=== PATIENT | male | born 1955 | race American Indian/Alaskan Native ===

== ENCOUNTER 2017-09-18 11:44 | Emergency (ER) | payer MEDICAID ==
[2017-09-18 11:49] VITALS: BMI 29.4
[2017-09-18 12:27] LABS: BASO % 0.6 % (0.0-2.0); EOS # 0.2 K/uL (0.0-0.7); EOS % 2.4 % (0.0-4.0); LYMPH # 1.6 K/uL (1.0-4.3); LYMPH % 23.7 % (20.0-40.0); MEAN CELL VOLUME 73.5 fL (80.0-94.0); MEAN CORPUSCULAR HGB CONC 31.3 g/dL (33.0-37.0); MEAN PLATELET VOLUME 9.1 fL (7.2-11.7); MONO # 0.6 K/uL (0.0-0.8); MONO % 8.3 % (0.0-10.0); NEUT # 4.4 K/uL (1.8-7.0); NRBC % 0.1 % (0.0-2.0); RBC 6.09 Mil/uL (4.40-5.90); WHITE BLOOD COUNT 6.7 K/uL (4.8-10.8)
[2017-09-18 12:40] LABS: INR 0.9
[2017-09-18 12:47] LABS: ALB/GLOB RATIO 1.1 (1.0-2.1); ALT/SGPT 38 U/L (21-72); AST/SGOT 50 U/L (17-59); BLOOD UREA NITROGEN 13 mg/dL (9-20); GFR AFRICAN-AMERICAN > 60; GFR NON-AFRICAN AMERICAN > 60; LIPASE 97 U/L (23-300)
[2017-09-18 12:59] LABS: B-TYPE NATRIURETIC PEPTIDE 877 pg/mL (0-900); CK-MB 6.18 ng/mL (0.0-3.38)
--- NOTE | 2017-09-18 13:08 | RAD ---
PROCEDURE: Radiographs of the chest and abdomen (obstructive series) HISTORY: ABD DISTENSION, SOB COMPARISON: No prior. TECHNIQUE: AP radiograph of the chest, with upright and supine radiographs of the abdomen. FINDINGS: CHEST: Lungs: No infiltrate bilaterally. Cardiovascular: Cardiomegaly. No definite pulmonary vascular derangement appreciated. Pleura: No pleural fluid. No pneumothorax. Other findings: None. ABDOMEN AND PELVIS: Bowel: Moderate distention of large bowel with gas is appreciate with gas seen partially filling various small-bowel loops. The pattern is nonobstructive overall. No air-fluid level formation. Free air: None. Bones: Unremarkable. Other findings: None. IMPRESSION: Unremarkable radiographs of chest and abdomen. No evidence of mechanical bowel obstruction.
[2017-09-18 13:53] LABS: SQUAMOUS EPITHIAL < 1 /hpf (0-5); URINE BILIRUBIN NEGATIVE (NEGATIVE); URINE BLOOD NEGATIVE (NEGATIVE); URINE CLARITY Hazy (Clear); URINE COLOR Yellow (YELLOW); URINE GLUCOSE (UA) NORMAL (Normal); URINE LEUKOCYTE ESTERASE NEG Leu/uL (Negative); URINE PROTEIN 2+ mg/dL (NEGATIVE); URINE UROBILINOGEN NORMAL mg/dL (0.2-1.0)
[2017-09-18 14:37] VITALS: RESP 18
[2017-09-18] MEDS ORDERED: Iodixanol 320 MG/ML 100 ML BOTTLE IV ONE (15:04)
--- NOTE | 2017-09-18 16:44 | CT ---
PROCEDURE: CT Angiography Chest, Abdomen and Pelvis with and without intravenous contrast HISTORY: R/O AORTIC DISSECTION/ANHEURYSM COMPARISON: None. TECHNIQUE: Contiguous axial images of the chest, abdomen and pelvis were obtained in the phase of aortic enhancement. A noncontrast enhanced CT of the chest was also obtained to evaluate for possible intramural thrombus. Coronal and sagittal reformats were generated. IV contrast: Visipaque 320, 100 cc Radiation dose (DLP): 1873.49 mGy-cm. This CT exam was performed using one or more of the following dose reduction techniques: Automated exposure control, adjustment of the mA and/or kV according to patient size, and/or use of iterative reconstruction technique. FINDINGS: CT ANGIOGRAPHY OF THE CHEST WITH & WITHOUT CONTRAST: The thoracic aorta appears normal in caliber without dissection or aneurysm related. LUNGS: Central airways appear clear. No infiltrate bilaterally. Linear atelectasis or fibrosis is noted at the left lower lobe base. No pulmonary mass identified bilaterally. MEDIASTINUM: Unremarkable thoracic aorta. No aneurysm or dissection. Moderate cardiomegaly. Main pulmonary artery unremarkable. No vascular congestion. No lymphadenopathy. LYMPH NODES: Unremarkable. PLEURA: Unremarkable. No pneumothorax. No pleural fluid. BONES: Unremarkable. OTHER FINDINGS: None. CT ANGIOGRAPHY OF THE ABDOMEN AND PELVIS WITH CONTRAST: The abdominal aorta and local branches appear widely patent without aneurysm or dissection related. Arterial phase imaging limits evaluation abdominal and pelvic viscera outside of the indication for aortic evaluation. LIVER: Unremarkable. No gross lesion or ductal dilatation. GALLBLADDER AND BILE DUCTS: Unremarkable. PANCREAS: Unremarkable. No gross lesion or ductal dilatation. SPLEEN: Unremarkable. ADRENALS: Unremarkable. No mass. KIDNEYS AND URETERS: Unremarkable. No hydronephrosis. No solid mass. VASCULATURE: Unremarkable. No aortic aneurysm. STOMACH AND BOWEL: Unremarkable. No obstruction. No gross mural thickening. APPENDIX: Normal appendix. PERITONEUM: The minimal umbilical hernia is identified containing a short segment of bowel which does not appear incarcerated. LYMPH NODES: Unremarkable. No enlarged lymph nodes. BLADDER: Unremarkable. REPRODUCTIVE: Unremarkable. BONES: No acute fracture. OTHER FINDINGS: None. IMPRESSION: 1. Normal appearing at thoracoabdominal aorta. No aneurysm or dissection associated. 2. Moderate cardiomegaly. No infiltrate, pleural or pericardial effusion or significant lymphadenopathy in the chest. 3. Nonacute abdomen and pelvis CT limited by arterial phase imaging as discussed above.
--- NOTE | 2017-09-18 17:02 | C.PDOC ---
History Of Present Illness Patient presents to ED c/o mild SOB, as well as abdominal distension/discomfort that radiates to his back. He denies chest pain, palpitations, fever, cough, nausea/vomiting/diarrhea, dysuria. Time Seen by Provider: 09/18/17 11:44 Chief Complaint (Nursing): Abdominal Pain History Per: Patient History/Exam Limitations: no limitations Onset/Duration Of Symptoms: Days Current Symptoms Are (Timing): Still Present Severity: Mild Associated Symptoms: denies: Fever, Chills, Nausea, Vomiting Past Medical History Reviewed: Historical Data, Nursing Documentation, Vital Signs Vital Signs: Last Vital Signs Temp 98.2 F 09/18/17 17:14 Pulse 89 09/18/17 17:14 Resp 18 09/18/17 17:14 BP 158/100 H 09/18/17 17:14 Pulse Ox 99 09/22/17 08:42 - Medical History PMH: HTN Family History: States: No Known Family Hx - Social History Hx Alcohol Use: Yes Hx Substance Use: No - Immunization History Hx Tetanus Toxoid Vaccination: No Hx Influenza Vaccination: No Hx Pneumococcal Vaccination: No Review Of Systems Except As Marked, All Systems Reviewed And Found Negative. Cardiovascular: Negative for: Chest Pain, Palpitations Respiratory: Positive for: Shortness of Breath. Negative for: Cough Gastrointestinal: Positive for: Other (abdomninal distension ). Negative for: Nausea, Vomiting, Abdominal Pain, Diarrhea Genitourinary: Negative for: Dysuria, Hematuria Physical Exam - Physical Exam Appears: Well, Non-toxic, No Acute Distress, Other (speaking) Head: Normacephalic Eye(s): bilateral: Normal Inspection Oral Mucosa: Moist Cardiovascular: Rhythm Regular Respiratory: Normal Breath Sounds, No Rales, No Rhonchi, No Wheezing Gastrointestinal/Abdominal: Normal Exam, Bowel Sounds, Soft, No Tenderness, Other (obese abdomen) Back: No Vertebral Tenderness, No Paraspinal Tenderness Extremity: Normal ROM, No Pedal Edema, No Calf Tenderness Pulses: Left Dorsalis Pedis: Normal, Right Dorsalis Pedis: Normal Neurological/Psych: Oriented x3 ED Course And Treatment - Laboratory Results Result Diagrams: 09/18/17 12:24 09/18/17 12:24 O2 Sat by Pulse Oximetry: 99 (RA) Pulse Ox Interpretation: Normal - Other Rad obs series X-Ray: Viewed By Me, Read By Radiologist Interpretation: Accession No. : [id number]. Patient Name / ID : TAMMY MAGANA / [id number]. Exam Date : 09/18/2017 12:33:13 ( Approved ). Study Comment : Sex / Age : M / 62Y. Creator : Blaise Marcelo MD. Dictator : Blaise Marcelo MD. Round Boner : Credit Analysis Manager : Blaise Marcelo MD. Approver2 : Report Date : 09/18/2017 13:05:51. My Comment : . PROCEDURE: Radiographs of the chest and abdomen (obstructive series). HISTORY: ABD DISTENSION, SOB. COMPARISON: No prior. TECHNIQUE: AP radiograph of the chest , with upright and supine radiographs of the abdomen. FINDINGS: CHEST: Lungs : No infiltrate bilaterally. Cardiovascular: Cardiomegaly. No definite pulmonary vascular derangement appreciated. Pleura: No pleural fluid. No pneumothorax. Other findings: None. ABDOMEN AND PELVIS: Bowel: Moderate distention of large bowel with gas is appreciate with gas seen partially filling various small-bowel loops. The pattern is nonobstructive overall. No air-fluid level formation. Free air: None. Bones: Unremarkable. Other findings: None. IMPRESSION: Unremarkable radiographs of chest and abdomen. No evidence of mechanical bowel obstruction. - CT Scan/US CT CHEST/ABD/PELVIS Other Rad Studies (CT/US): Read By Radiologist, Radiology Report Reviewed CT/US Interpretation: Accession No. : [id number]. Patient Name / ID : TAMMY MAGANA / [id number]. Exam Date : 09/18/2017 15:43:18 ( Approved ). Study Comment : Sex / Age : M / 62Y. Creator : Ale Shrestha. Dictator : Blaise Marcelo MD. Round Boner : Credit Analysis Manager : Blaise Marcelo MD. Approver2 : Report Date : 09/18/2017 16:15:07. My Comment : . PROCEDURE: CT Angiography Chest, Abdomen and Pelvis with and without intravenous contrast. HISTORY: R/O AORTIC DISSECTION/ANHEURYSM. COMPARISON: None. TECHNIQUE: Contiguous axial images of the chest, abdomen and pelvis were obtained in the phase of aortic enhancement. A noncontrast enhanced CT of the chest was also obtained to evaluate for possible intramural thrombus. Coronal and sagittal reformats were generated. IV contrast: Visipaque 320, 100 cc. Radiation dose (DLP): 1873.49 mGy-cm. This CT exam was performed using one or more of the following dose reduction techniques: Automated exposure control, adjustment of the mA and/or kV according to patient size, and/or use of iterative reconstruction technique. FINDINGS: CT ANGIOGRAPHY OF THE CHEST WITH & WITHOUT CONTRAST: The thoracic aorta appears normal in caliber without dissection or aneurysm related. LUNGS: Central airways appear clear. No infiltrate bilaterally. Linear atelectasis or fibrosis is noted at the left lower lobe base. No pulmonary mass identified bilaterally. MEDIASTINUM: Unremarkable thoracic aorta. No aneurysm or dissection. Moderate cardiomegaly. Main pulmonary artery unremarkable. No vascular congestion. No lymphadenopathy. LYMPH NODES: Unremarkable. PLEURA: Unremarkable. No pneumothorax. No pleural fluid. BONES: Unremarkable. OTHER FINDINGS: None. CT ANGIOGRAPHY OF THE ABDOMEN AND PELVIS WITH CONTRAST: The abdominal aorta and local branches appear widely patent without aneurysm or dissection related. Arterial phase imaging limits evaluation abdominal and pelvic viscera outside of the indication for aortic evaluation. LIVER: Unremarkable. No gross lesion or ductal dilatation. GALLBLADDER AND BILE DUCTS: Unremarkable. PANCREAS: Unremarkable. No gross lesion or ductal dilatation. SPLEEN: Unremarkable. ADRENALS: Unremarkable. No mass. KIDNEYS AND URETERS: Unremarkable. No hydronephrosis. No solid mass. VASCULATURE: Unremarkable. No aortic aneurysm. STOMACH AND BOWEL: Unremarkable. No obstruction. No gross mural thickening. APPENDIX: Normal appendix. PERITONEUM: The minimal umbilical hernia is identified containing a short segment of bowel which does not appear incarcerated. LYMPH NODES: Unremarkable. No enlarged lymph nodes. BLADDER: Unremarkable. REPRODUCTIVE: Unremarkable. BONES: No acute fracture. OTHER FINDINGS: None. IMPRESSION: 1. Normal appearing at thoracoabdominal aorta. No aneurysm or dissection associated. 2. Moderate cardiomegaly. No infiltrate, pleural or pericardial effusion or significant lymphadenopathy in the chest. 3. Nonacute abdomen and pelvis CT limited by arterial phase imaging as discussed above. Progress Note: Blood work, OBS series, EKG ordered and reviewed. CT chest/abd/ pelvis with IV contrast ordered to evaluate aorta. Patient given PO Amlodipine , admits to history of HTN but does not take medications. Reevaluation Time: 17:00 Reassessment Condition: Improved (Patient reassessed, is resting comfortably, states he feels better, has no current pain/discomfort. CT scan neg for aortic dissection/anheurysm, shows cardiomegaly. Patient given Rxs for Norvasc and Simethicone. He was instructed to follow up with PMD Dr. Browning in 1-2 days. He understands he should return to ED if his symptoms worsen.) Disposition Counseled Patient/Family Regarding: Studies Performed, Diagnosis, Need For Followup, Rx Given - Disposition Referrals: Jann Browning MD [Staff Provider] - Disposition: HOME/ ROUTINE Disposition Time: 17:00 Condition: STABLE Additional Instructions: FOLLOW UP WITH YOUR DOCTOR IN 1-2 DAYS RETURN TO ER IMMEDIATELY IF YOU HAVE WORSENING SYMPTOMS USE MEDICATIONS DIRECTED Prescriptions: amLODIPine [Norvasc] 5 mg PO DAILY #30 tab Simethicone [Mylicon Chew Tab] 80 mg PO Q6 #15 ctb Instructions: High Blood Pressure (DC) Forms: [employer] (Solomon Islander) Print Language: PERUVIAN - Clinical Impression Clinical Impression: Hypertension, Abdominal bloating
[2017-09-19 11:14] VITALS: BP 158/100; PULSE 89
[2017-09-19 11:25] VITALS: TEMP 98.2
[2017-09-22 08:31] VITALS: O2SAT 99
--- NOTE | 2017-09-23 21:14 | CARD ---
APPROVED REPORT EKG Measurement Heart [id number] <Conclusion> Sinus rhythm with premature atrial complexes with aberrant conduction T wave abnormality, consider lateral ischemia Prolonged QT Abnormal ECG
== END 2017-09-18 17:20 | disposition home or self-care (01) ==
LOC: C.ER 11:44
DX: I10 Essential (primary) hypertension (principal); R14.0 Abdominal distension (gaseous)
CPT/HCPCS: 74022; 74174; 74175; 80053; 81001; 82550; 82553; 83690; 83880; 84484; 85025; 85610; 85730; 93005; 99285; Q9967

== ENCOUNTER 2017-12-02 17:06 | Emergency (ER) | payer MEDICAID ==
[2017-12-02 17:06] VITALS: BMI 29.4
[2017-12-02 17:14] VITALS: RESP 18; TEMP 98
--- NOTE | 2017-12-02 17:32 | C.PDOC ---
History Of Present Illness 62 year old male presents to the ED for a refill of Nrovasc after he ran out of the medication 3 days ago. Patient states he has not yet seen Dr. Browning, but plans to follow up with him as a new patient this week. Patient has no physical complaints at this time. Time Seen by Provider: 12/02/17 17:18 Chief Complaint (Nursing): Med Refill History Per: Patient History/Exam Limitations: no limitations Onset/Duration Of Symptoms: Days (3) Current Symptoms Are (Timing): Still Present Additional History Per: Patient Past Medical History Reviewed: Historical Data, Nursing Documentation, Vital Signs Vital Signs: Last Vital Signs Temp 98 F 12/02/17 17:11 Pulse 94 H 12/02/17 18:00 Resp 18 12/02/17 18:00 BP 169/91 H 12/02/17 18:00 Pulse Ox 95 12/02/17 18:00 - Medical History PMH: HTN Surgical History: No Surg Hx Family History: States: Unknown Family Hx - Social History Hx Alcohol Use: Yes Hx Substance Use: No - Immunization History Hx Tetanus Toxoid Vaccination: No Hx Influenza Vaccination: No Hx Pneumococcal Vaccination: No Review Of Systems Constitutional: Positive for: Other (Norvasc medication refill ) Physical Exam - Physical Exam Appears: Non-toxic, No Acute Distress Skin: Normal Color, Warm, Dry Head: Atraumatic, Normacephalic Eye(s): bilateral: Normal Inspection Oral Mucosa: Moist Neck: Supple Chest: Symmetrical, No Deformity, No Tenderness Cardiovascular: Rhythm Regular, No Murmur Respiratory: Normal Breath Sounds, No Rales, No Rhonchi, No Wheezing Extremity: Normal ROM, Capillary Refill (less than 2 seconds ) Neurological/Psych: Oriented x3, Normal Speech, Normal Cognition ED Course And Treatment O2 Sat by Pulse Oximetry: 94 Progress Note: Patient's blood pressure was found to be elevated in the ED. Norvasc PO given, with improvement of blood pressure. Patient is resting comfortably, and is stable for discharge. Advised to follow up with Dr. Pineda for further evaluation. Disposition Counseled Patient/Family Regarding: Diagnosis, Need For Followup, Rx Given - Disposition Referrals: Jann Browning MD [Staff Provider] - Disposition: HOME/ ROUTINE Disposition Time: 17:45 Condition: STABLE Additional Instructions: FOLLOW UP WITH YOUR DOCTOR IN 1-2 DAYS USE MEDICATION DAILY RETURN TO EMERGENCY ROOM IF YOU HAVE ANY CONCERNING SYMPTOMS Prescriptions: amLODIPine [Norvasc] 5 mg PO DAILY #30 tab Instructions: High Blood Pressure (DC) Forms: [employer] (Nauruan) Print Language: KOSOVAN - Clinical Impression Clinical Impression: Hypertension, Medication refill - Scribe Statement The provider has reviewed the documentation as recorded by the Scribe (Yuridia Bauer) Provider Attestation: All medical record entries made by the Scribe were at my direction and personally dictated by me. I have reviewed the chart and agree that the record accurately reflects my personal performance of the history, physical exam, medical decision making, and the department course for this patient. I have also personally directed, reviewed, and agree with the discharge instructions and disposition.
[2017-12-02 18:04] VITALS: BP 169/91; PULSE 94
[2017-12-02 19:00] VITALS: O2SAT 94
== END 2017-12-02 18:00 | disposition home or self-care (01) ==
LOC: C.ER 17:06
DX: Z76.0 Encounter for issue of repeat prescription (principal); I10 Essential (primary) hypertension